=== PATIENT | female | born 1960 | race Caucasian/White ===

== ENCOUNTER 2019-02-14 18:39 | Emergency (ER) | payer OTHER ==
[2019-02-14 18:53] VITALS: BMI 25.4
[2019-02-14] MEDS ORDERED: predniSONE 20 MG TABLET (UD) PO ONE (20:17)
[2019-02-14] MEDS ORDERED: ALBUTEROL SO4 2.5/IPRATROPIUM 0.5 INH SOL 3 ML VIAL.NEB. NEB ONE ×5 (20:17→20:49)
[2019-02-14] MEDS ORDERED: predniSONE 20 MG TABLET (UD) ONE (20:25)
--- NOTE | 2019-02-14 20:26 | PDOC ---
History of Present Illness - General Chief Complaint: Shortness of Breath Stated Complaint: SOB History Source: Patient Exam Limitations: No Limitations - History of Present Illness Initial Comments: 02/14/19 20:19 Patient is a 58 year old female with h/o seasonal allergies, hypothyoid, asthma c/o chest tightness since today. States 3 days ago develped a cough productive of white sputum, then horseness yesterday and tightness in the chest today. Had fever of 100.7 today, took tylenol at about 1 pm. States had been using MDI and singluar without relief. No recent travel, family history negative for PE/DVT. PMD: Dr. Adhikari. PMHX: as above PSOCHX: (+) cig 3x/day, neg etoh, no drug ALL: NKDA GENERAL/CONSTITUTIONAL: No fever or chills. No weakness. No weight change. HEAD, EYES, EARS, NOSE AND THROAT: No change in vision. No ear pain or discharge. No sore throat. CARDIOVASCULAR: No chest pain or shortness of breath. RESPIRATORY: (+) cough, wheezing, or hemoptysis.] GASTROINTESTINAL: No nausea, vomiting, diarrhea or constipation. No rectal bleeding. GENITOURINARY: No dysuria, frequency, or change in urination. MUSCULOSKELETAL: No joint or muscle swelling or pain. No neck or back pain. SKIN AND BREASTS: No rash or easy bruising. NEUROLOGIC: No headache, vertigo, loss of consciousness, or loss of sensation. PSYCHIATRIC: No depression or anxiety. ENDOCRINE: No increased thirst. No abnormal weight change. HEMATOLOGIC/LYMPHATIC: No anemia, easy bleeding, or history of blood clots. ALLERGIC/IMMUNOLOGIC: No hives or skin allergy. No latex allergy. GENERAL: The patient is awake, alert, and fully oriented, in no acute distress. HEAD: Normal with no signs of trauma. EYES: Pupils equal, round and reactive to light, extraocular movements intact, sclera anicteric, conjunctiva clear. ENT: Ears normal, nares patent, oropharynx clear without exudates. Moist mucous membranes. NECK: Normal range of motion, supple without lymphadenopathy, JVD, or masses. LUNGS: Breath sounds equal, clear to auscultation bilaterally. mild, intermittent expiratory wheezes, and no crackles. HEART: Regular rate and rhythm, normal S1 and S2 without murmur, rub. ABDOMEN: Soft, nontender, normoactive bowel sounds. No guarding, no rebound. No masses. EXTREMITIES: Normal range of motion, no edema. No clubbing or cyanosis. No cords, erythema, or tenderness. NEUROLOGICAL: Cranial nerves II through XII grossly intact. Normal speech, normal gait. PSYCH: Normal mood, normal affect. SKIN: Warm, Dry, normal turgor, no rashes or lesions noted. Past History - Past Medical History Allergies/Adverse Reactions: Allergies Allergy/AdvReac Type Severity Reaction Status Date / Time No Known Allergies Allergy Verified 02/14/19 18:47 Home Medications: Ambulatory Orders Albuterol 0.083% Nebulizer Marlin [Ventolin 0.083% Nebulizer Soln -] 1 neb NEB Q4H #100 vial 02/14/19 Albuterol Sulfate Inhaler - [Ventolin HFA Inhaler -] 2 inh PO Q4H #1 inh Albuterol Sulfate Inhaler - [Ventolin Hfa Inhaler -] 2 inh PO Q6H PRN MDD 8 10/04 Azithromycin [Zithromax -] 250 mg PO UTDICT #6 tab 02/14/19 Levothyroxine [Synthroid -] 100 mcg PO DAILY 02/14/19 Montelukast Na [Singulair -] 10 mg PO HS 02/14/19 predniSONE [Deltasone -] 40 mg PO DAILY #14 tablet 02/14/19 COPD: No Thyroid Disease: Yes (hypo) Other medical history: singulair for allergies - Surgical History Appendectomy: Yes - Suicide/Smoking/Psychosocial Hx Smoking History: Current every day smoker Information on smoking cessation initiated: No *Physical Exam - Vital Signs Last Vital Signs Temp Pulse Resp BP Pulse Ox 98.8 F 100 H 18 131/73 96 02/14/19 18:51 02/14/19 18:51 02/14/19 18:51 02/14/19 18:51 02/14/19 18:51 Medical Decision Making - Medical Decision Making 02/14/19 20:19 Patient is a 58 year old female with h/o seasonal allergies, hypothyoid, asthma c/o chest tightness since today. States 3 days ago develped a cough productive of white sputum, then horseness yesterday and tightness in the chest today. Had fever of 100.7 today, took tylenol at about 1 pm. States had been using MDI and singluar without relief. No recent travel, family history negative for PE/DVT. Patient's symptoms consistent with asthma secondary to URI. Will get chest x-ray rule out pneumonia Neb Treatments, Prednisone 60 mg by mouth, Zithromax Reassess. 02/14/19 22:59 Patient is improved, wheezing resolved O2 sat 95% on room air Selected Entries 02/14/19 23:26 Pulse Rate [ 88 Apical] Respiratory 18 Rate O2 Sat by Pulse 97 Oximetry (%) I discussed the physical exam findings, ancillary test results and final diagnoses with the patient. I answered all of the patient's questions. The patient was satisfied with the care received and felt comfortable with the discharge plan and treatment plan. The Patient agrees to follow up with the primary care physician within 24-72 hours. *DC/Admit/Observation/Transfer Diagnosis at time of Disposition: Asthma attack Qualifiers: Asthma severity: mild Asthma persistence: unspecified Qualified Code(s): J45.901 - Unspecified asthma with (acute) exacerbation - Discharge Dispostion Disposition: HOME Condition at time of disposition: Stable - Prescriptions Prescriptions: Albuterol 0.083% Nebulizer Marlin [Ventolin 0.083% Nebulizer Soln -] 1 neb NEB Q4H #100 vial Albuterol Sulfate Inhaler - [Ventolin HFA Inhaler -] 2 inh PO Q4H #1 inh Azithromycin [Zithromax -] 250 mg PO UTDICT #6 tab predniSONE [Deltasone -] 40 mg PO DAILY #14 tablet - Referrals - Patient Instructions Printed Discharge Instructions: DI for Asthma -- Adult Additional Instructions: Follow up with pmd in 1-2 days, you must return to the ED for fever, chills, worsening symptoms. - Post Discharge Activity
[2019-02-14] MEDS ORDERED: AZITHROMYCIN 250 MG TABLET PO ONE (22:04)
--- NOTE | 2019-02-14 22:06 | PDOC ---
*Physical Exam - Vital Signs Last Vital Signs Temp Pulse Resp BP Pulse Ox 98.8 F 100 H 18 131/73 96 02/14/19 18:51 02/14/19 18:51 02/14/19 18:51 02/14/19 18:51 02/14/19 18:51 ED Treatment Course - RADIOLOGY Radiology Studies Ordered: Category Date Time Status CHEST PA & LAT [RAD] Stat Radiology 02/14/19 20:31 Taken - Medications Given in the ED: ED Medications Discontinued Medications Generic Name Dose Route Start Last Admin Trade Name Freq PRN Reason Stop Dose Admin Albuterol/Ipratropium 1 amp 02/14/19 20:17 02/14/19 20:48 Duoneb - NEB 02/14/19 20:18 1 amp ONCE ONE Administration Albuterol/Ipratropium 1 amp 02/14/19 20:24 02/14/19 20:48 Duoneb - NEB 02/14/19 20:25 1 amp ONCE ONE Administration Albuterol/Ipratropium 1 amp 02/14/19 20:24 02/14/19 20:51 Duoneb - NEB 02/14/19 20:25 1 amp ONCE ONE Administration Prednisone 60 mg 02/14/19 20:17 02/14/19 20:48 Deltasone - PO 02/14/19 20:18 60 mg ONCE ONE Administration Medical Decision Making - Medical Decision Making 02/14/19 22:05 58 yo F presenting with cough and shortness of breath Fevers yesterday CXR no infiltrate seen Will discharge to home on Azithromycin, Nebs, Steroids Pt seen by Midlevel Provider under my direct supervision Ancillary studies reviewed I agree with plan as outlined by Midlevel Provider *DC/Admit/Observation/Transfer Diagnosis at time of Disposition: Asthma attack Qualifiers: Asthma severity: mild Asthma persistence: unspecified Qualified Code(s): J45.901 - Unspecified asthma with (acute) exacerbation - Discharge Dispostion Disposition: HOME Condition at time of disposition: Stable - Prescriptions Prescriptions: Albuterol 0.083% Nebulizer Marlin [Ventolin 0.083% Nebulizer Soln -] 1 neb NEB Q4H #100 vial Albuterol Sulfate Inhaler - [Ventolin HFA Inhaler -] 2 inh PO Q4H #1 inh Azithromycin [Zithromax -] 250 mg PO UTDICT #6 tab predniSONE [Deltasone -] 40 mg PO DAILY #14 tablet - Referrals - Patient Instructions Printed Discharge Instructions: DI for Asthma -- Adult Additional Instructions: Follow up with pmd in 1-2 days, you must return to the ED for fever, chills, worsening symptoms. - Post Discharge Activity
[2019-02-14] MEDS ORDERED: AZITHROMYCIN 250 MG TABLET ONE (22:07)
[2019-02-14 22:20] VITALS: BP 107/65
[2019-02-14 22:38] VITALS: TEMP 99
[2019-02-14 23:27] VITALS: PULSE 88
--- NOTE | 2019-02-15 12:47 | EKG ---
Test Reason : Blood Pressure : / mmHG Vent. Rate : 094 BPM Atrial Rate : 094 BPM P-R Int : 122 ms QRS Dur : 086 ms QT Int : 364 ms P-R-T Axes : 080 079 074 degrees QTc Int : 455 ms NORMAL SINUS RHYTHM BIATRIAL ENLARGEMENT ABNORMAL ECG NO PREVIOUS ECGS AVAILABLE Confirmed by DAGO AVILA MD ([id number]) on 02/15/2019 12:47:38 PM Referred By: Confirmed By:DAGO AVILA MD
== END 2019-02-14 23:27 | disposition home or self-care (01) ==
LOC: JER 18:39
PROC: 3E0F7GC Introduction of Other Therapeutic Substance into Respiratory Tract, Via Natural or Artificial Opening (ICD-10-PCS; principal; 2019-02-14)
PROC: 3E0F7GC Introduction of Other Therapeutic Substance into Respiratory Tract, Via Natural or Artificial Opening (ICD-10-PCS; 2019-02-14)
PROC: 3E0F7GC Introduction of Other Therapeutic Substance into Respiratory Tract, Via Natural or Artificial Opening (ICD-10-PCS; 2019-02-14)
DX: J45.901 Unspecified asthma with (acute) exacerbation (principal); E03.9 Hypothyroidism, unspecified; J30.1 Allergic rhinitis due to pollen
CPT/HCPCS: 71046-TC-FY; 93005; 93010; 94640; 99282-25

== ENCOUNTER 2020-12-03 18:33 | Emergency (ER) | payer OTHER ==
[2020-12-03 18:52] VITALS: BP 138/85; PULSE 71; TEMP 98.1; BMI 25.4
[2020-12-03] MEDS ORDERED: LIDOCAINE 5% TOPICAL PATCH TP ONE (19:40)
[2020-12-03] MEDS ORDERED: METHOCARBAMOL 500 MG TABLET PO ONE (19:41)
[2020-12-03] MEDS ORDERED: KETOROLAC TROMETHAMINE 30 MG/1 ML VIAL IVPUSH ONE (19:43)
[2020-12-03] MEDS ORDERED: METHOCARBAMOL 500 MG TABLET ONE (19:53)
[2020-12-03] MEDS ORDERED: LIDOCAINE 5% TOPICAL PATCH ONE (19:54)
[2020-12-03] MEDS ORDERED: KETOROLAC TROMETHAMINE 30 MG/1 ML VIAL ONE (19:54)
[2020-12-03 20:30] LABS: BASO % 0.2 % (0-2.0); EOS % 3.2 % (0-4.5); HEMATOCRIT 42.1 % (32.4-45.2); HEMOGLOBIN 13.9 GM/dL (10.7-15.3); LYMPH % 30.6 % (8-40); MCH 28.8 pg (25.7-33.7); MCHC 33.1 g/dl (32.0-36.0); MEAN PLT VOLUME 10.4 fl (7.5-11.1); MONO % 6.1 % (3.8-10.2); NEUT % 59.9 % (42.8-82.8); PLATELET COUNT 237 K/MM3 (134-434); RBC 4.84 M/mm3 (3.60-5.2); RDW 13.9 % (11.6-15.6); WHITE BLOOD COUNT 9.9 K/mm3 (4.0-10.0)
[2020-12-03 20:59] LABS: CHLORIDE 106 mmol/L (98-107); POTASSIUM 5.7 mmol/L (3.5-5.1); SODIUM 135 mmol/L (136-145)
[2020-12-03 21:01] LABS: CALCIUM 9.4 mg/dL (8.5-10.1)
[2020-12-03] MEDS ORDERED: SODIUM CHLORIDE 500 ML IV STA (21:01)
[2020-12-03 21:03] LABS: ALBUMIN 3.6 g/dl (3.4-5.0); ANION GAP 3 MMOL/L (8-16); BLOOD UREA NITROGEN 18.6 mg/dL (7-18); CO2 26 mmol/L (21-32); GLUCOSE,RANDOM 93 mg/dL (74-106)
[2020-12-03 21:06] LABS: CREATININE 0.9 mg/dL (0.55-1.3); SGOT/AST 55 U/L (15-37); SGPT/ALT 27 U/L (13-61)
[2020-12-03 21:07] LABS: BILIRUBIN,TOTAL 0.4 mg/dL (0.2-1)
[2020-12-03 21:08] LABS: TOT PROT 7.2 g/dl (6.4-8.2)
[2020-12-03 21:09] LABS: ALK PHOS 73 U/L (45-117)
[2020-12-03] MEDS ORDERED: LIDOCAINE PATCH REMOVAL MC SCH (22:00)
== END 2020-12-04 00:30 | disposition home or self-care (01) ==
LOC: JER 18:33
PROC: 3E033GC Introduction of Other Therapeutic Substance into Peripheral Vein, Percutaneous Approach (ICD-10-PCS; principal; 2020-12-03)
PROC: 3E0337Z Introduction of Electrolytic and Water Balance Substance into Peripheral Vein, Percutaneous Approach (ICD-10-PCS; principal; 2020-12-03)
DX: M79.602 Pain in left arm (principal); J44.9 Chronic obstructive pulmonary disease, unspecified; Z72.0 Tobacco use
CPT/HCPCS: 36415; 72125-TC; 80053; 82550; 82553; 84443; 84479; 84484; 85025; 93005; 93010; 99285-25

== ENCOUNTER 2022-07-16 11:47 | Emergency (ER) | payer OTHER ==
[2022-07-16 12:58] VITALS: BP 139/82; PULSE 63; RESP 18; TEMP 98; BMI 24.7
== END 2022-07-16 14:23 | disposition home or self-care (01) ==
LOC: JER 11:47
DX: S00.91XA Abrasion of unspecified part of head, initial encounter (principal); W01.0XXA Fall on same level from slipping, tripping and stumbling without subsequent striking against object, initial encounter
CPT/HCPCS: 99283-25

== ENCOUNTER 2024-02-03 15:05 | Emergency (ER) | payer OTHER ==
[2024-02-03 15:14] VITALS: BP 148/85; PULSE 95; RESP 18; TEMP 98; BMI 21.9
[2024-02-03] MEDS ORDERED: ALBUTEROL SO4 2.5/IPRATROPIUM 0.5 INH SOL 3 ML VIAL.NEB. NEB ONE ×2 (16:27→16:42)
[2024-02-03] MEDS: ALBUTEROL SO4 2.5/IPRATROPIUM 0.5 INH SOL 3 ML VIAL.NEB. NEB SCH (16:30)
[2024-02-03] MEDS ORDERED: predniSONE 20 MG TABLET (UD) ONE (16:33)
[2024-02-03] MEDS: predniSONE 20 MG TABLET (UD) PO ONE (16:40)
== END 2024-02-03 18:23 | disposition home or self-care (01) ==
LOC: JER 15:05
PROC: 3E0F7GC Introduction of Other Therapeutic Substance into Respiratory Tract, Via Natural or Artificial Opening (ICD-10-PCS; principal; 2024-02-03)
DX: J45.901 Unspecified asthma with (acute) exacerbation (principal); R05.9 Cough, unspecified
CPT/HCPCS: 99283-25